=== PATIENT | female | born 1985 | race Caucasian/White ===

== ENCOUNTER 2020-06-28 08:04 | Emergency (ER) | payer OTHER ==
[2020-06-28] MEDS ORDERED: Tetracaine HCl/PF 0.5% 4 ML Bottle EYELF ONE (08:22)
[2020-06-28] MEDS ORDERED: Fluorescein 1 MG Ophth Strip EYELF ONE (08:22)
[2020-06-28] MEDS ORDERED: Erythromycin Base 0.5% Ophth Oint 3.5 GM Tube ONE (08:48)
--- NOTE | 2020-06-28 08:50 | EDM.PDOC ---
ED HPI GENERAL MEDICAL PROBLEM - General Chief Complaint: ENT Problem Stated Complaint: DOG SCRATCHED EYE Time Seen by Provider: 06/28/20 08:15 Source of Information: Reports: Patient History Limitations: Reports: No Limitations - History of Present Illness INITIAL COMMENTS - FREE TEXT/NARRATIVE: This 34 yo female patient reports to the ED due to a dog scratch to the left eye. The patient reports the incident happened at about 0630 this morning. Onset: Today Duration: Hour(s): Location: Reports: Face (left eye) Quality: Reports: Ache, Sharp, Stabbing Severity: Moderate Improves with: Reports: None Worsens with: Reports: None Context: Reports: Activity Associated Symptoms: Reports: No Other Symptoms Left Eye Pain Score (Numeric/FACES): 7 - Related Data Allergies Allergy/AdvReac Type Severity Reaction Status Date / Time No Known Allergies Allergy Verified 06/28/20 08:25 Home Meds: Home Meds Norethindrone-Ethin. Estradiol [Nortrel 1-35 28 Tablet] 1 tab PO DAILY 06/28/20 [History] Propranolol HCl [Propranolol] 10 mg PO DAILY 06/28/20 [History] Past Medical History - Past Health History Medical/Surgical History: Denies Medical/Surgical History Social & Family History - Tobacco Use Tobacco Use Status *Q: Never Tobacco User - Recreational Drug Use Recreational Drug Use: No ED ROS ENT - Review of Systems Review Of Systems: Comprehensive ROS is negative, except as noted in HPI. ED EXAM, ENT - Physical Exam Exam: See Below Exam Limited By: No Limitations General Appearance: Alert, WD/WN, Moderate Distress Eye Exam: Left Eye: Corneal Abrasion Ears: Normal External Exam, Normal Canal, Hearing Grossly Normal, Normal TMs Nose: Normal Inspection, Normal Mucousa, No Blood Mouth/Throat: Normal Inspection, Normal Gums, Normal Lips, Normal Oropharynx, Normal Teeth Head: Atraumatic, Normocephalic Neck: Normal Inspection, Supple, Non-Tender, Full Range of Motion Respiratory/Chest: No Respiratory Distress, Lungs Clear, Normal Breath Sounds, No Accessory Muscle Use, Chest Non-Tender Cardiovascular: Normal Peripheral Pulses, Regular Rate, Rhythm, No Edema, No Gallop, No JVD, No Murmur, No Rub GI/Abdominal: Normal Bowel Sounds, Soft, Non-Tender, No Organomegaly, No Distention, No Abnormal Bruit, No Mass (Female) Exam: Deferred Rectal (Female) Exam: Deferred Back: Normal Inspection, Full Range of Motion Extremities: Normal Inspection, Normal Range of Motion, Non-Tender, No Pedal Edema, Normal Capillary Refill Neurological: Alert, Oriented, CN II-XII Intact, Normal Cognition, Normal Gait, Normal Reflexes, No Motor/Sensory Deficits Psychiatric: Normal Affect, Normal Mood Skin: Warm, Dry, Intact, Normal Color, No Rash Lymphatic: No Adenopathy ED EYE PROCEDURE - Eye Procedure Alcaine Drops Administered: Yes Antibiotic Oinment/Drps Admin: Left Eye Progress: The patient did have a corneal abrasion to her left eye. There was no evidence of foreign material upon examination. Course - Vital Signs Last Recorded V/S: Last Vital Signs Temp 36.6 C 06/28/20 08:25 Pulse 90 06/28/20 08:25 Resp 16 06/28/20 08:25 BP 116/75 06/28/20 08:25 Pulse Ox 100 06/28/20 08:25 - Orders/Labs/Meds Meds: Medications Discontinued Medications Generic Name Dose Route Start Last Admin Trade Name Wendy PRN Reason Stop Dose Admin Erythromycin Confirm 06/28/20 08:48 Erythromycin 0.5% Ophth Oint Administered 06/28/20 08:49 Dose 3.5 gm .ROUTE .STK-MED ONE Fluorescein Sodium 1 mg 06/28/20 08:22 06/28/20 08:29 Ful-Renee EYELF 06/28/20 08:23 1 mg ONETIME ONE Administration Tetracaine HCl 1 ml 06/28/20 08:22 06/28/20 08:28 Tetracaine 0.5% Steri-Unit Dona EYELF 06/28/20 08:23 1 drop ASDIRECTED ONE Administration Departure - Departure Time of Disposition: 08:50 Disposition: Home, Self-Care 01 Condition: Fair Clinical Impression: Corneal abrasion, left Qualifiers: Encounter type: initial encounter Qualified Code(s): S05.02XA - Injury of conjunctiva and corneal abrasion without foreign body, left eye, initial encounter - Discharge Information *PRESCRIPTION DRUG MONITORING PROGRAM REVIEWED*: Not Applicable *COPY OF PRESCRIPTION DRUG MONITORING REPORT IN PATIENT ASHELY: Not Applicable Instructions: Corneal Abrasion Referrals: PCP,None [Primary Care Provider] - Forms: ED Department Discharge Care Plan Goals: The patient was advised of the examination results during the visit. The patient's was given some Tetracaine drops to the left eye. The patient was discharged with Tetracaine drops to apply if needed to the left eye. The patient was also discharged with Erythramycin Ointment to apply a 1/4 inch ribbon to the left eye 4 times per day for 10 days. If the patient has any additional symptoms or concerns, the patient was encouraged to follow-up with her primary care facility or eye doctor in about 1 week. Sepsis Event Note (ED) - Evaluation Sepsis Screening Result: No Definite Risk - Focused Exam Vital Signs: Vital Signs Temp Pulse Resp BP Pulse Ox 06/28/20 08:25 36.6 C 90 16 116/75 100
== END 2020-06-28 09:07 | disposition home or self-care (01) ==
LOC: DL.ED 08:04
DX: S05.02XA Injury of conjunctiva and corneal abrasion without foreign body, left eye, initial encounter (principal); W54.8XXA Other contact with dog, initial encounter
CPT/HCPCS: 99283; A9270